=== PATIENT | female | born 1935 | race Caucasian/White ===

== ENCOUNTER 2019-01-18 13:34 | Emergency (ER) | payer MEDICARE ==
[2019-01-18 14:55] LABS: BASOPHILS % (AUTO) 1.1 % (0.0-5.0); EOSINOPHILS % (AUTO) 0.7 % (0.0-8.0); HEMATOCRIT 44.6 % (36-48); LYMPHOCYTES % (AUTO) 22.9 % (21.0-51.0); MEAN CORPUSCULAR HEMOGLOBIN 30.8 pg (27.0-33.0); MEAN CORPUSCULAR VOLUME 90.8 fL (79-99); MONOCYTES % (AUTO) 5.8 % (3.0-13.0); NEUTROPHILS % (AUTO) 69.5 % (40.0-77.0); PLATELET COUNT (AUTO) 211 K/uL (130-400); RED BLOOD CELL COUNT(AUTO) 4.92 MIL/uL (4.00-5.50); RED CELL DISTRIBUTION WIDTH 14.3 % (11.0-15.5)
[2019-01-18 15:09] LABS: POTASSIUM 3.9 mmol/L (3.5-5.1)
[2019-01-18 15:11] LABS: APPEARANCE,URINE Clear (CLEAR); BILIRUBIN,URINE Negative (NEGATIVE); COLOR,URINE Yellow (YELLOW); GLUCOSE, URINE (UA) Negative (NEGATIVE); KETONES,URINE Negative (NEGATIVE); LEUKOCYTE ESTERASE ,URINE Small (NEGATIVE); NITRATE,URINE Negative (NEGATIVE); OCCULT BLOOD,URINE Negative (NEGATIVE); PROTEIN,URINE Negative (NEGATIVE); UROBILINOGEN,URINE 0.2 mg/dL (0.2-1.0)
[2019-01-18 15:14] LABS: ALBUMIN 3.8 g/dL (3.5-5.0); BILIRUBIN,TOTAL 0.7 mg/dL (0.2-1.0)
[2019-01-18 15:31] LABS: RBC,URINE 0-1 /HPF (0-1)
[2019-01-18 15:32] LABS: BACTERIA,URINE Few /HPF (None Seen); SQUAMOUS EPITHELIAL CELL,UR Few /HPF (0-2); TRANSITIONAL EPI CELLS,URINE Few /HPF (None Seen)
== END 2019-01-18 17:38 | disposition home or self-care (01) ==
LOC: EDH 13:34
DX: M54.5 Low back pain (principal); M47.896 Other spondylosis, lumbar region; M48.07 Spinal stenosis, lumbosacral region; Z88.1 Allergy status to other antibiotic agents; Z88.8 Allergy status to other drugs, medicaments and biological substances
CPT/HCPCS: 36415; 72148; 80053; 81001; 85025

== ENCOUNTER 2019-04-07 06:58 | Emergency (ER) | payer MEDICARE ==
[2019-04-07 07:49] LABS: BASOPHILS % (AUTO) 3.1 % (0.0-5.0); EOSINOPHILS % (AUTO) 1.9 % (0.0-8.0); HEMATOCRIT 44.2 % (36-48); LYMPHOCYTES % (AUTO) 21.4 % (21.0-51.0); MEAN CORPUSCULAR HEMOGLOBIN 30.5 pg (27.0-33.0); MEAN CORPUSCULAR HGB CONC 33.4 g/dL (32.0-36.0); MEAN CORPUSCULAR VOLUME 91.3 fL (79-99); MONOCYTES % (AUTO) 5.7 % (3.0-13.0); NEUTROPHILS % (AUTO) 67.9 % (40.0-77.0); PLATELET COUNT (AUTO) 189 K/uL (130-400); RED BLOOD CELL COUNT(AUTO) 4.84 MIL/uL (4.00-5.50); RED CELL DISTRIBUTION WIDTH 14.9 % (11.0-15.5); WHITE BLOOD COUNT (AUTO) 8.8 K/uL (4.8-10.8)
[2019-04-07] MEDS ORDERED: FUROSEMIDE 10 MG/ML 4ML VIAL ONE (07:51)
[2019-04-07 08:03] LABS: CREATININE 1.5 mg/dL (0.5-1.5); POTASSIUM 4.1 mmol/L (3.5-5.1)
[2019-04-07 08:37] LABS: B-TYPE NATRIURETIC PEPTIDE 125 pg/mL (0-100)
== END 2019-04-07 09:45 | disposition home or self-care (01) ==
LOC: EDH 06:58
DX: R60.0 Localized edema (principal); Z88.1 Allergy status to other antibiotic agents; Z88.5 Allergy status to narcotic agent; Z88.8 Allergy status to other drugs, medicaments and biological substances
CPT/HCPCS: 36415; 80048; 83880; 84484; 85025; 85378; 93005; 96374; 99285; J1940

== ENCOUNTER 2019-04-12 09:30 | Observation (INO) | payer MEDICARE ==
[~2019-04-12] VITALS: Ht 167.6 cm; Wt 81.6 kg
[2019-04-12 09:35] VITALS: BP_DIAS 70
[2019-04-13] MEDS ORDERED: MV-M1TAB57 PO (10:41)
[2019-04-13] MEDS ORDERED: CRAN500T2 PO (10:41)
[2019-04-13] MEDS ORDERED: CHOL200013 PO (10:41)
[2019-04-13] MEDS ORDERED: VIT1CAPS5 PO (10:41)
[2019-04-13] MEDS ORDERED: VITAMIN B12 PO (10:41)
[2019-04-13] MEDS ORDERED: [UNRECOGNIZED DRUG - CODE] PO (10:41)
[2019-04-13] MEDS ORDERED: FURO20TA4 PO (10:41)
[2019-04-15] VITALS (25 sets, daily range): BP systolic 104–155; BP diastolic 56–106
[2019-04-15] MEDS ORDERED: PROPOFOL 10 MG/ML 20ML VIAL IV ONE (06:54)
[2019-04-15] MEDS ORDERED: GLYCOPYRROLATE 1 MG/5 ML SYRINGE ONE (06:54)
[2019-04-15] MEDS ORDERED: LIDOCAINE PF 2% 5ML ABBOJECT ONE (06:54)
[2019-04-15] MEDS ORDERED: SUCCINYLCHOLINE 200MG/10ML SYR ONE (06:54)
[2019-04-15] MEDS ORDERED: DEXAMETHASONE SOD PHOSPHATE 10MG/ML 1ML VIAL ONE ×2 (06:54→07:00)
[2019-04-15] MEDS ORDERED: NEOSTIGMINE 5MG/5ML SYR IV ONE (06:55)
[2019-04-15] MEDS ORDERED: FENTANYL CITRATE PF 50 MCG/1 ML 2ML VIAL ONE ×3 (06:55→11:51)
[2019-04-15] MEDS ORDERED: ONDANSETRON HCL 4 MG/2 ML VIAL ONE (06:55)
[2019-04-15] MEDS ORDERED: ROCURONIUM 10MG/1ML SYR 10 MG/ML ML ONE (06:55)
[2019-04-15] MEDS ORDERED: MIDAZOLAM HCL 1 MG/ML 2ML VIAL ONE (06:55)
[2019-04-15] MEDS ORDERED: BUPIVACAINE/EPI/PF 0.25% 30ML VIAL IJ ONE (06:58)
[2019-04-15] MEDS ORDERED: THROMBIN-JMI 20000 UNIT KIT TP ONE (06:58)
[2019-04-15] MEDS ORDERED: BACITRACIN 50,000 UNIT VIAL ONE (06:58)
[2019-04-15] MEDS ORDERED: DURAMORPH PF1 MG/ML 10ML AMP IV ONE (06:58)
[2019-04-15] MEDS ORDERED: LACTATED RINGERS 1000ML 1,000 ML IV ONE (07:00)
[2019-04-15] MEDS ORDERED: EPHEDRINE SULFATE 50 MG/ML AMPULE ONE (07:01)
[2019-04-15] MEDS: CEFAZOLIN SODIUM 1 GM VIAL IVP ONE ×2 (07:08→08:00)
[2019-04-15] MEDS: LACTATED RINGERS 1000ML 1,000 ML IV SCH ×2 (11:01→23:56)
[2019-04-15] MEDS ORDERED: CEFAZOLIN SODIUM 1 GM VIAL IVP SCH (11:15)
[2019-04-15] MEDS ORDERED: PROMETHAZINE HCL 25 MG/ML 1ML AMPULE IM PRN (11:15)
[2019-04-15] MEDS ORDERED: HYDROCODONE/ACETAMINOPHEN 5/325 MG TAB PO PRN (11:15)
[2019-04-15] MEDS ORDERED: SODIUM CHLORIDE 0.9% 10 ML VIAL IVP PRN (11:15)
[2019-04-15] MEDS ORDERED: FUROSEMIDE 20 MG TABLET PO PRN (11:15)
[2019-04-15] MEDS ORDERED: ESMOLOL HCL 10 MG/ML 10 ML VIAL ONE (11:27)
[2019-04-15] MEDS: DEXAMETHASONE SOD PHOSPHATE 4 MG/ML 1ML VIAL IVP SCH ×3 (13:40→23:56)
[2019-04-15] MEDS: MORPHINE SULFATE 2 MG/ML 1ML SYG IVP PRN ×3 (13:41→23:58)
[2019-04-15] MEDS ORDERED: CEFAZOLIN SODIUM 1 GM VIAL ONE (17:25)
[2019-04-15] MEDS ORDERED: BENZOCAINE/MENTH/CETYLPYRD CL 1 EACH LOZENGE MM ONE (21:03)
[2019-04-15] MEDS ORDERED: BENZOCAINE/MENTH/CETYLPYRD CL 1 EACH LOZENGE MM PRN (21:30)
[2019-04-16 03:45] VITALS: BP 108/55
[2019-04-16] MEDS: DEXAMETHASONE SOD PHOSPHATE 4 MG/ML 1ML VIAL IVP SCH ×2 (06:07→11:47)
[2019-04-16 07:59] VITALS: BP 110/58
[2019-04-16] MEDS ORDERED: ACETAMINOPHEN 325 MG TAB PO PRN (08:45)
[2019-04-16] MEDS ORDERED: BISMUTH SUBSALICYLATE 262 MG/15 ML ML PO PRN ×2 (08:45→09:15)
[2019-04-16] MEDS ORDERED: BISMUTH SUBSALICYLATE 262 MG/15 ML ML PO SCH ×2 (08:45→09:15)
[2019-04-16] MEDS ORDERED: VIT E PO SCH (09:00)
[2019-04-16] MEDS ORDERED: VIT A PO SCH (09:00)
[2019-04-16] MEDS ORDERED: CHOLECALCIFEROL 2000 UNIT PO SCH (09:00)
[2019-04-16] MEDS ORDERED: ZINC PO SCH (09:00)
[2019-04-16] MEDS ORDERED: MULTIVITAMIN WITH MINERALS TABLET PO SCH (09:00)
[2019-04-16] MEDS ORDERED: CYANOCOBALAMIN (VITAMIN B-12) 1,000 MCG TABLET PO SCH (09:00)
[2019-04-16] MEDS ORDERED: PYRIDOXINE HCL 50 MG TABLET PO SCH (09:00)
[2019-04-16] MEDS ORDERED: COPPER PO SCH (09:00)
[2019-04-16] MEDS ORDERED: VIT C PO SCH (09:00)
[2019-04-16] MEDS ORDERED: PHARMACY COMMUNICATION MISC SCH (09:00)
[2019-04-16] MEDS ORDERED: CYANOCOBALAMIN (VITAMIN B-12) 100 MCG TABLET PO SCH (09:00)
[2019-04-16] MEDS ORDERED: CRANBERRY EXTRACT 500 MG PO SCH (09:00)
--- NOTE | 2019-04-16 09:00 | NUR ---
CM Note: [facility] NR pending ins auth and acceptance CM met with pt discussed rec for short term rehab placement, pt agreeable CRISTIAN signed for [facility]. Faxed order, clinicals and pasrr. Spoke to Ismael will come eval pt, aware dcp for today. Pt pending ins auth and acceptance. CM to cont to follow up.
[2019-04-16 10:52] VITALS: BP 109/66
--- NOTE | 2019-04-16 11:22 | NUR ---
CM Note: [facility] NR pending ins auth Spoke to Ismael Casanova, received updated clinicals forwarded to insurance this morning. Pt pending ins auth. EMS arranged and faxed for today in case pt need, primary nurse to call [facility] once pt approved and ready to DC. Primary nurse aware. CM to cont to follow up.
[2019-04-16 15:37] VITALS: BP 135/69
--- NOTE | 2019-04-16 15:42 | NUR ---
CM Note: [employer] ins auth [id number] Spoke to Leif carter/[facility] MCR Adv. pt has ins auth for [facility] #[id number]. Spoke to Ismael carter/[facility] aware of auth, pt has acceptance. EMS arranged and faxed for today, primary nurse to call [facility] once pt ready to DC. Primary nurse aware. CM to cont to follow up.
--- NOTE | 2019-04-16 18:00 | NUR ---
Discharge teaching completed in the room with pt. Emphasis on Dr. Francois's discharge instructions for activity, incision care, and follow up care. Pt is to see him in office on 04/23. Instructed pt to take staple remover kit with her to her appts. Report called [facility] nurse Lu Arora LVN. PIV removed, tip intact. Dressed w sterile 2x2 and band aid after hemostasis. Dressing changed and drain removed from lumbar incision at 1300. 25 intact sharon to lumbar incision, 3 intact sharon to site of SHASTA drain insertion. Drain removed, tip intact, edges smooth, not jagged or torn. No swelling, discoloration, or active drainage to either site. Painted all with betadine and dressed w sterile nonadherent dressing, secured with medipore tape. Pt wheeled to front lobby for [facility] to [facility] facility staff[facility]facility van. Pt notified her responsible green party of transfer per self. Pt in stable condition at time of discharge.
== END 2019-04-16 17:55 ==
LOC: EDSTATUS 09:30 → DAHIP 04-15 05:53 → EDSTATUS 04-15 09:30 → 4AH 04-15 11:40
PROVIDERS: ADMIT Neurological Surgery; ATTEND Neurological Surgery
DX: M48.061 Spinal stenosis, lumbar region without neurogenic claudication (principal); G96.0 Cerebrospinal fluid leak; H26.9 Unspecified cataract; H35.30 Unspecified macular degeneration; H54.8 Legal blindness, as defined in USA; M54.10 Radiculopathy, site unspecified; Z98.1 Arthrodesis status; Z79.899 Other long term (current) drug therapy
CPT/HCPCS: 63042; 63044 ×2; 72020; 96374; 96375; 96376 ×2; A4344; A4510; A4600; A4649 ×5; G0378 ×30; J0330; J0690 ×2; J1100 ×7; J2001; J2250; J2274; J2405; J2704; J2710; J3010 ×3; J3490 ×4; J7030; J7120 ×3

== ENCOUNTER 2019-09-08 07:53 | Emergency (ER) | payer MEDICARE ==
[~2019-09-08 07:53] MED LIST: CHOL200013 PO; CRAN500T2 PO; FURO20TA4 PO; MV-M1TAB57 PO; VIT1CAPS5 PO; VITAMIN B12 PO; [UNRECOGNIZED DRUG - CODE] PO
[2019-09-08 08:31] LABS: BASOPHILS % (AUTO) 0.4 % (0.0-5.0); EOSINOPHILS % (AUTO) 0.9 % (0.0-8.0); HEMATOCRIT 41.9 % (36-48); LYMPHOCYTES % (AUTO) 17.9 % (21.0-51.0); MEAN CORPUSCULAR HEMOGLOBIN 30.3 pg (27.0-33.0); MEAN CORPUSCULAR HGB CONC 33.8 g/dL (32.0-36.0); MEAN CORPUSCULAR VOLUME 89.4 fL (79-99); MONOCYTES % (AUTO) 7.5 % (3.0-13.0); NEUTROPHILS % (AUTO) 73.3 % (40.0-77.0); PLATELET COUNT (AUTO) 163 K/uL (130-400); RED BLOOD CELL COUNT(AUTO) 4.69 MIL/uL (4.00-5.50); RED CELL DISTRIBUTION WIDTH 15.2 % (11.0-15.5); WHITE BLOOD COUNT (AUTO) 9.3 K/uL (4.8-10.8)
[2019-09-08] MEDS ORDERED: FENTANYL CITRATE PF 50 MCG/1 ML 2ML VIAL ONE (08:37)
[2019-09-08 08:42] LABS: CREATININE 1.2 mg/dL (0.5-1.5); POTASSIUM 4.5 mmol/L (3.5-5.1)
[2019-09-08 08:48] LABS: ALBUMIN 3.1 g/dL (3.5-5.0); TOTAL PROTEIN, SERUM 6.2 g/dL (6.0-8.3)
[2019-09-08 10:09] LABS: APPEARANCE,URINE Clear (CLEAR); BILIRUBIN,URINE Negative (NEGATIVE); COLOR,URINE Dark Yellow (YELLOW); GLUCOSE, URINE (UA) Negative (NEGATIVE); KETONES,URINE Negative (NEGATIVE); LEUKOCYTE ESTERASE ,URINE Small (NEGATIVE); NITRATE,URINE Negative (NEGATIVE); OCCULT BLOOD,URINE Negative (NEGATIVE); PROTEIN,URINE Negative (NEGATIVE)
[2019-09-08 10:26] LABS: BACTERIA,URINE Rare /HPF (None Seen); RBC,URINE 0-1 /HPF (0-1); SQUAMOUS EPITHELIAL CELL,UR Few /HPF (0-2); WBC,URINE 0-1 /HPF (0-1)
== END 2019-09-08 10:46 | disposition home or self-care (01) ==
LOC: EDH 07:53
DX: M54.5 Low back pain (principal); Z88.1 Allergy status to other antibiotic agents; Z88.6 Allergy status to analgesic agent; Z88.8 Allergy status to other drugs, medicaments and biological substances; Z87.891 Personal history of nicotine dependence
CPT/HCPCS: 36415; 74176; 80053; 81001; 85025; 96374; 99285; J3010

== ENCOUNTER → 2020-09-18 | Outpatient (CLI) | payer MEDICARE | END | disposition home or self-care (01) | LOC: OIH 08:46 | PROVIDERS: ATTEND Neurological Surgery | DX: M54.2 Cervicalgia (principal); Z98.1 Arthrodesis status | CPT/HCPCS: 72040 ==